=== PATIENT | male | born 1980 | race Caucasian/White ===

== ENCOUNTER → 2017-03-23 | Outpatient (CLI) | payer OTHER | LOC: BMCIMAGING 18:34 | PROVIDERS: ATTEND Family Medicine | DX: R07.9 Chest pain, unspecified (principal); F17.210 Nicotine dependence, cigarettes, uncomplicated ==

== ENCOUNTER → 2017-06-26 | Outpatient (CLI) | payer OTHER | LOC: FIMAGING 11:46 | PROVIDERS: ATTEND Internal Medicine | DX: S09.90XD Unspecified injury of head, subsequent encounter (principal) ==

== ENCOUNTER → 2017-07-06 | Outpatient (CLI) | payer OTHER | LOC: FIMAGING 15:27 | PROVIDERS: ATTEND Internal Medicine | DX: R94.09 Abnormal results of other function studies of central nervous system (principal) ==

== ENCOUNTER 2018-01-16 11:13 | Emergency (ER) | payer OTHER ==
--- NOTE | 2018-01-16 11:29 | CPEKG ---
Heart Rate: 57 RR Interval: 1053 P-R Interval: 140 QRSD Interval: 84 QT Interval: 396 QTC Interval: 386 P Goldston: 83 QRS Goldston: 72 T Wave Goldston: 64 EKG Severity - OTHERWISE NORMAL ECG - EKG Impression: SINUS RHYTHM Electronically Signed By: Remy Khan 16-Jan-2018 12:54:46
--- NOTE | 2018-01-16 11:58 | EDPHY ---
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 Last night HISTORY OF PRESENT ILLNESS: 37-year-old male generally healthy complaining of atraumatic left-sided chest pain since 7:00 p.m. last evening. describes a dull ache in the left chest without radiation. Not exacerbated with exertion. No dyspnea. Pain started when he was at the computer. States that he became upset and anxious, developed bilateral upper extremity carpal pedal spasms and perioral paresthesias which have now resolved. He continues to experience intermittent symptoms. Not described as pleuritic. No abdominal pain. No nausea or vomiting. No back pain. No syncope or near syncope. No exertional chest pain or dyspnea. PRIMARY CARE PROVIDER:Nadeem REVIEW OF SYSTEMS: A ten point review of systems was performed and is negative with the exception of the items mentioned in the HPI PAST MEDICAL & SURGICAL HISTORY: No pertinent medical or surgical history SOCIAL HISTORY: Daily cigarette smoker. No cocaine use. No IV drug use FAMILY HISTORY: no family history of premature coronary artery disease, vasculopathy or sudden unexplained PHYSICAL EXAM (Prior to examination, patient consented to physical exam, hands were washed and my usual and customary physical exam procedures followed) 1) GENERAL: Well-developed, well-nourished, alert and oriented. Appears anxious. 2) HEAD: Normocephalic, atraumatic 3) HEENT: Pupils equal, round, reactive to light bilaterally. Sclera anicteric. Nasopharynx, oropharynx, clear, no lesions. 4) NECK: Full range of motion, no meningeal signs. 5) LUNGS: Clear auscultation bilaterally, no wheezes, no rhonchi, no retractions. 6) HEART: Regular rate and rhythm, no murmur, no heave, no gallop. 7) ABDOMEN: No guarding, no rebound, no focal tenderness, negative McBurney's, negative Soliman's, negative Rovsing's, negative peritoneal sign, 8) MUSCULOSKELETAL: Moving all extremities, no focal areas of tenderness, no obvious trauma. No peripheral edema or discoloration. Bilateral hands are examined: No splinter hemorrhages, No clubbing. Negative Homans no palpable cord 9) BACK: No CVA tenderness, no midline vertebral tenderness, no fluctuance, no step-off, no obvious trauma, no visual or palpable abnormality. 10) SKIN: No rash, no petechiae. 11) Psychiatric: Patient is oriented X 3, there is no agitation. DIFFERENTIAL DIAGNOSIS: In no particular order, including but not limited to myocardial ischemia, pulmonary embolus, chest wall pain, pleural inflammation and pulmonary infectious causes. (Emily Wild) Constitutional: Initial Vital Signs Temperature (C) 36.9 C 01/16/18 11:17 Heart Rate 67 01/16/18 11:17 Respiratory Rate 16 01/16/18 11:17 Blood Pressure 141/80 H 01/16/18 11:17 O2 Sat (%) 98 01/16/18 11:17 O2 Delivery Mode Room Air Allergies/Adverse Reactions: amoxicillin trihydrate [From Augmentin] Allergy (Unknown, Verified 01/16/18 11: 16) potassium clavula *RETIRED-06/17/12 [From Augmentin] Allergy (Unknown, Verified 01/16/18 11:16) Medical Decision Making - Diagnostics EKG Interpretation: EKG: Complete interpretation has been separately recorded in the [facility] archive. Summary impression: Sinus rhythm, rate 57 (Remy Khan) Imaging Results: Imaging Impressions Chest X-Ray 01/16/18 11:49 Impression: Airways disease. Images reviewed by myself (Emily Wild) ED Course/Re-evaluation: Patient was re-evaluated with serial examinations. Discussed his diagnostic results including negative D-dimer which I think adequately excludes pulmonary embolus in this patient whom I have a low to moderate pretest probability for pulmonary embolus. Doubt MO in the presence of normal troponin and symptoms since last evening. No history of illicit drug use. He does have a history of chronic tobacco use. I counseled the patient for greater than 3 min regarding smoking tobacco cessation. At this time I do not think that further diagnostic studies are indicated. I spent time talking with the patient and discussing these results. He feels comfortable being discharged. He has a plan with a colleague of Dr. Dany Silver in 2 days. I recommend he keep this appointment. The meantime should she develop new or worsening symptoms to return to the ER immediately for re-evaluation. Care of patient under supervision of primary supervising physician Dr Khan ([facility]) Other Provider: PHYSICIAN DOCUMENTATION: The patient was evaluated and managed by the Physician Pump Servicer Helper. My co- signature indicates that I have reviewed this chart and I agree with the findings and plan of care as documented. I am the secondary supervising physician. (Remy Khan) - Data Points Laboratory Results: Laboratory Results 01/16/18 12:00 01/16/18 12:00 01/16/18 01/16/18 01/16/18 12:00 12:00 12:00 WBC 5.14 10^3/uL 10^3/uL (3.80-9.50) RBC 4.59 10^6/uL 10^6/uL (4.40-6.38) Hgb 14.0 g/dL g/dL (13.7-17.5) Hct 40.3 % % (40.0-51.0) MCV 87.8 fL fL (81.5-99.8) MCH 30.5 pg pg (27.9-34.1) MCHC 34.7 g/dL g/dL (32.4-36.7) RDW 12.6 % % (11.5-15.2) Plt Count 251 10^3/uL 10^3/uL (150-400) MPV 10.0 fL fL (8.7-11.7) Neut % (Auto) 57.3 % % (39.3-74.2) Lymph % (Auto) 29.2 % % (15.0-45.0) [place]pin % (Auto) 11.3 % % (4.5-13.0) Eos % (Auto) 0.8 % % (0.6-7.6) Baso % (Auto) 1.2 % % (0.3-1.7) Nucleat RBC Rel Count 0.0 % % (0.0-0.2) Absolute Neuts (auto) 2.95 10^3/uL 10^3/uL (1.70-6.50) Absolute Lymphs (auto) 1.50 10^3/uL 10^3/uL (1.00-3.00) Absolute Monos (auto) 0.58 10^3/uL 10^3/uL (0.30-0.80) Absolute Eos (auto) 0.04 10^3/uL 10^3/uL (0.03-0.40) Absolute Basos (auto) 0.06 10^3/uL 10^3/uL (0.02-0.10) Absolute Nucleated RBC 0.00 10^3/uL 10^3/uL (0-0.01) Immature Gran % 0.2 % % (0.0-1.1) Immature Gran # 0.01 10^3/uL 10^3/uL (0.00-0.10) D-Dimer < 0.27 ug/mLFEU ug/mLFEU (0.00-0.50) Sodium 140 mEq/L mEq/L (135-145) Potassium 4.1 mEq/L mEq/L (3.5-5.2) Chloride 105 mEq/L mEq/L (97-110) Carbon Dioxide 24 mEq/l mEq/l (22-31) Anion Gap 11 mEq/L mEq/L (8-16) BUN 13 mg/dL mg/dL (7-23) Creatinine 0.8 mg/dL mg/dL (0.7-1.3) Estimated GFR > 60 Glucose 86 mg/dL mg/dL (70-100) Calcium 9.5 mg/dL mg/dL (8.5-10.4) Troponin I < 0.012 ng/mL ng/mL (0.000-0.034) Departure - Departure Disposition: Home, Routine, Self-Care Clinical Impression: Chest pain Qualifiers: Chest pain type: other chest pain Qualified Code(s): R07.89 - Other chest pain Condition: Good Instructions: Chest Pain (ED) Additional Instructions: Seek medical attention if you develop new or worsening chest pain, if you develop new or worsening shortness of breath, or any other symptoms that concern you. Keep your upcoming appointment with Dr. Dany Silver Referrals: Dany Silver MD [Primary Care Provider] - 01/18/18 (Keep yourr appointment with Dr. Dany Silver on Sunday)
[2018-01-16 12:10] LABS: PLATELET COUNT 251 10^3/uL (150-400)
[2018-01-16 12:42] VITALS: BP 119/73
== END 2018-01-16 12:50 | disposition home or self-care (01) ==
DX: R07.89 Other chest pain (principal); F17.210 Nicotine dependence, cigarettes, uncomplicated

== ENCOUNTER → 2018-03-11 | Outpatient (CLI) | payer OTHER | LOC: FIMAGING 08:32 | PROVIDERS: ATTEND Internal Medicine | DX: E03.9 Hypothyroidism, unspecified (principal) | CPT/HCPCS: 78012; A9516 ==